=== PATIENT | male | born 1990 | race American Indian/Alaskan Native ===

== ENCOUNTER 2018-02-20 12:50 | Emergency (ER) | payer SELFPAY ==
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
[2018-02-20 13:37] LABS: Basophils # (Auto) 0.1 K/mm3 (0.0-0.1); Basophils % (Auto) 0.7 % (0.0-1.8); Eosinophils # (Auto) 0.2 K/mm3 (0.0-0.4); Hematocrit 44.2 % (35.5-45.6); Hemoglobin 15.3 gm/dl (11.8-15.2); Lymphocytes # (Auto) 1.7 K/mm3 (1.2-5.4); Lymphocytes % (Auto) 22.1 % (13.4-35.0); Mean Corpuscular HGB Conc 35 % (32-34); Mean Corpuscular Hemoglobin 31 pg (28-32); Mean Corpuscular Volume 88 fl (84-94); Monocytes # (Auto) 0.4 K/mm3 (0.0-0.8); Monocytes % (Auto) 5.1 % (0.0-7.3); Platelet Count 304 K/mm3 (140-440); Red Blood Count 5.01 M/mm3 (3.65-5.03); Red Cell Distribution Width 12.6 % (13.2-15.2)
[2018-02-20 13:48] LABS: BUN/Creatinine Ratio 12; Blood Urea Nitrogen 14 mg/dL (9-20); Calcium 9.4 mg/dL (8.4-10.2); Hemolysis Index 14
[2018-02-20] MEDS ORDERED: ATIVAN IM PRN (14:05)
[2018-02-20] MEDS ORDERED: HALDOL IM PRN (14:05)
[2018-02-20] MEDS ORDERED: BENADRYL IM PRN (14:05)
[2018-02-20 16:06] LABS: Amphetamine Screen,Urine PRESUMPTIVE NEGATIVE; Benzodiazepines Screen,Urine PRESUMPTIVE NEGATIVE; Methadone Screen,Urine PRESUMPTIVE NEGATIVE; Opiate Screen,Urine PRESUMPTIVE NEGATIVE
[2018-02-20 16:12] LABS: Bacteria,Urine 1+ /HPF (Negative); Bilirubin,Urine NEG (Negative); Blood,Urine NEG (Negative); Color,Urine Yellow (Yellow); Mucus,Urine FEW /HPF
[2018-02-20 16:17] LABS: Cannabinoid Screen,Urine PRESUMPTIVE POSITIVE; Cocaine Screen,Urine PRESUMPTIVE POSITIVE
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
[2018-02-21] MEDS: RisperDAL PO SCH (22:39)
[2018-02-21] MEDS ORDERED: TYLENOL ONE (22:54)
[2018-02-21] MEDS ORDERED: TYLENOL PO ONE (22:55)
--- NOTE | 2018-02-22 11:01 | Progress Note ---
Subjective - Reason for Consult Consult date: 02/22/18 Reason for consult: Psychiatry Follow-up - Chief Complaint Chief complaint: "The vianey are still here" 27-year-old male presenting to the ER for acute psychosis. Today the patient is calm and cooperative during the assessment. He stated that the "vianey" is in his room. He stated that the vianey never "disappears." Throughout the interview the patient is euphoric. He denies SI/HI's. He still will not confirm or deny AH 's. He denies any side effects of his medication. Mental Status Exam - Vital signs Last Vital Signs Temp 98.4 F 02/21/18 08:30 Pulse 57 L 02/22/18 10:00 Resp 16 02/21/18 09:30 BP 103/46 02/22/18 10:00 Pulse Ox 100 02/22/18 10:00 - Exam Narrative exam: MSE: Appearance: calm, cooperative Behavior: regular eye contact Speech: regular rate and tone Mood: euphoric Affect: congruent to mood Thought Process: circumstantial Thought Content: denies SI/HI's and would not confirm or deny AH's, delusional Motor Activity: ambulatory Cognition: A/O x3 Insight: poor Judgment: poor Assessment and Plan Impression: Unspecified Mood DO with psy features. Substance Use DO (cocaine). Cannabis Use DO. Today the patient is calm and cooperative during the assessment. DDx: Bipolar DO with psychosis, R/O Schizoaffective DO, R/O Substance Induced Mood/Psychotic DO, R/O Delusional DO Recommendation/Plan: Continue 1013 with placement to inpatient psy services. Continue Risperdal 0.5 mg Po HS for mood/psychosis. Discussed possible metabolic side effects of Risperdal with patient.
[2018-02-22] MEDS: RisperDAL PO SCH (23:28)
--- NOTE | 2018-02-23 14:08 | Progress Note ---
Subjective - Reason for Consult Consult date: 02/23/18 Reason for consult: Psychiatric Follow-up Evaluation - Chief Complaint Chief complaint: "I'm doing alright."" Patient is a 27-year-old male who presents to the ER for acute psychosis. Today the patient is calm and cooperative during the assessment. He continues to endorse auditory hallucinations that whisper his name. Per patient paranoid thoughts have decreased. He denies SI/HI. Patient reports medication compliance. He denies any side effects to medications. Mental Status Exam - Vital signs Last Vital Signs Temp 98.4 F 02/23/18 09:30 Pulse 96 H 02/23/18 08:58 Resp 16 02/23/18 11:10 BP 124/91 02/23/18 08:58 Pulse Ox 100 02/23/18 11:10 - Exam Narrative exam: Mental Status Exam General Appearance: Causally Dressed-hospital gown Eye Contact: Intermittent Orientation: Alert and oriented x 4 ( person, place, time, and situation) Attitude/Behavior: Cooperative Sensorium: Distracted Psychomotor & Musculoskeletal Activity: WNL Mood: "Alright" Affect: Constricted Speech/Language: Normal rate and tone Thought Processes: Circumstantial Thought Content: Impoverished. Less paranoia Perception: + AH " they whisper my name" Denies VH. Concentration/Attention: Intact Suicidal Ideations/Plan: Patient denies. " No" Homicidal Ideations/Plan: Patient denies " No" Judgment: Variable Insight: Variable Assessment and Plan Impression: Unspecified Mood DO with psy features. Substance Use DO (cocaine). Cannabis Use DO. Today the patient is calm and cooperative during the assessment. He endorses less paranoiad and auditory hallucinations that whisper his name. Denies SI/HI DDx: Bipolar DO with psychosis, R/O Schizoaffective DO, R/O Substance Induced Mood/Psychotic DO, R/O Delusional DO Recommendation/Plan: 1. Continue 1013 with placement to inpatient psychiatric services. 2. Increase Risperdal 1 mg Po HS for mood/psychosis. Discussed possible metabolic side effects of Risperdal with patient. 3. Will continue to monitor mood, psychosis, sleep, appetite, compliance, and side effects.
[2018-02-23 17:34] VITALS: BP 126/58
== END 2018-02-23 20:55 ==
LOC: EEVIPCON 12:50 → ED 12:50
DX: F20.0 Paranoid schizophrenia (principal); F17.210 Nicotine dependence, cigarettes, uncomplicated; F14.10 Cocaine abuse, uncomplicated; F31.9 Bipolar disorder, unspecified; Z79.899 Other long term (current) drug therapy
CPT/HCPCS: 36415; 80048; 80307; 81001; 85025; 96372; 99285; G0480; J1200; J1630; 80320; J2060

== ENCOUNTER 2018-03-12 08:13 | Emergency (ER) | payer SELFPAY ==
[2018-03-12 08:39] VITALS: BP 139/77
== END 2018-03-12 17:32 | disposition left against medical advice (07) ==
LOC: ED 08:13
DX: R45.851 Suicidal ideations (principal); Z53.21 Procedure and treatment not carried out due to patient leaving prior to being seen by health care provider

== ENCOUNTER 2018-03-14 01:26 | Emergency (ER) | payer SELFPAY ==
[2018-03-14 01:30] VITALS: BP 141/88
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
== END 2018-03-14 02:55 | disposition home or self-care (01) ==
LOC: ED 01:26
DX: J02.9 Acute pharyngitis, unspecified (principal); F17.210 Nicotine dependence, cigarettes, uncomplicated; F12.10 Cannabis abuse, uncomplicated; F14.10 Cocaine abuse, uncomplicated; F31.9 Bipolar disorder, unspecified; F20.9 Schizophrenia, unspecified
CPT/HCPCS: 99282

== ENCOUNTER 2018-04-17 06:48 | Emergency (ER) | payer SELFPAY ==
[2018-04-17 07:26] VITALS: BP 138/93
[2018-04-17 07:48] LABS: Bilirubin,Urine NEG (Negative); Blood,Urine NEG (Negative); Color,Urine Yellow (Yellow); Mucus,Urine FEW /HPF
[2018-04-17 07:57] LABS: Amphetamine Screen,Urine PRESUMPTIVE NEGATIVE; Benzodiazepines Screen,Urine PRESUMPTIVE NEGATIVE; Cannabinoid Screen,Urine PRESUMPTIVE NEGATIVE; Methadone Screen,Urine PRESUMPTIVE NEGATIVE; Opiate Screen,Urine PRESUMPTIVE NEGATIVE
[2018-04-17 08:24] LABS: Cocaine Screen,Urine PRESUMPTIVE POSITIVE
== END 2018-04-17 07:35 | disposition left against medical advice (07) ==
LOC: ED 06:48
DX: Z00.8 Encounter for other general examination (principal); Z53.21 Procedure and treatment not carried out due to patient leaving prior to being seen by health care provider
CPT/HCPCS: 80307; 81001

== ENCOUNTER 2018-09-27 05:04 | Emergency (ER) | payer SELFPAY ==
[2018-09-27 05:21] VITALS: BP 122/78
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
--- NOTE | 2018-09-27 08:44 | XRay Report ---
RIGHT ANKLE, 2 VIEWS History: Pain Findings: 2 views demonstrates no evidence for fracture, dislocation or significant joint pathology. The soft tissues are unremarkable. Impression: Right ankle within normal limits.
== END 2018-09-27 08:54 | disposition home or self-care (01) ==
LOC: ED 05:04
DX: S90.561A Insect bite (nonvenomous), right ankle, initial encounter (principal); M25.571 Pain in right ankle and joints of right foot; F31.9 Bipolar disorder, unspecified; F17.200 Nicotine dependence, unspecified, uncomplicated; F20.9 Schizophrenia, unspecified; W57.XXXA Bitten or stung by nonvenomous insect and other nonvenomous arthropods, initial encounter; Y93.89 Activity, other specified; Y92.89 Other specified places as the place of occurrence of the external cause; Y99.8 Other external cause status